=== PATIENT | female | born 1945 | race Caucasian/White ===

== ENCOUNTER 2018-10-21 05:37 | Emergency (ER) | payer MEDICARE, OTHER ==
[2018-10-21 05:55] VITALS: TEMP 96.5; O2SAT 99
--- NOTE | 2018-10-21 06:21 | RAD ---
CLINICAL HISTORY: C/O pain to right 5th digit COMPARISON: None. TECHNIQUE: XR HAND 3 OR MORE VIEWS 10/21/2018 5:55 AM CDT FINDINGS: There is a nondisplaced fracture involving the proximal aspect of the proximal fifth phalanx. There are [id number] degenerative changes of most of the IP joint. There is mild soft tissue swelling involving the fifth digit. IMPRESSION: Proximal fifth phalanx fracture. Electronically signed by: Delon Randall MD 10/21/2018 6:18 AM CDT
[2018-10-21 06:37] VITALS: BP 146/84
--- NOTE | 2018-10-21 06:43 | ED.PDOC ---
History of Present Illness - General Chief Complaint: Upper Extremity Injury Stated Complaint: Rt 5th finger pain Time Seen by Provider: 10/21/18 06:35 Source: patient Exam Limitations: no limitations - History of Present Illness Initial Comments: Pt was rolling over in bed when she fell out onto the floor. Pt was in a twin bed and is used to a full size . Pt denies other injury but for minor bruise to forehead Occurred: just prior to arrival Pain - Upper Extremity: moderate: Hand, right Method of Injury: fell Improving Factors: nothing Worsening Factors: movement Allergies/Adverse Reactions: Allergies Sulfa Antibiotics Allergy (Verified 10/21/18 05:55) Home Medications: Ambulatory Orders Insulin Glargine [Lantus Solostar] PRN 10/21/18 RX: Enalapril Maleate 10 mg PO DAILY 10/21/18 RX: Tramadol HCl 50 mg PO Q4HR PRN #20 tab 10/21/18 Review of Systems - Review of Systems Constitutional: States: no symptoms reported EENTM: Denies: eye pain, blurred vision, nose pain Respiratory: States: no symptoms reported Cardiology: States: no symptoms reported Gastrointestinal/Abdominal: States: no symptoms reported Genitourinary: States: no symptoms reported Musculoskeletal: States: joint pain, joint swelling Skin: States: no symptoms reported Neurological: Denies: headache, numbness, paresthesia, weakness Endocrine: States: no symptoms reported Hematologic/Lymphatic: States: no symptoms reported Past Medical History (General) - Patient Medical History Hx Hypertension: Yes Hx Diabetes: Yes - Vaccination History Hx Influenza Vaccination: No - Female History Patient is a Female of Child Bearing Age (10 -59 yrs old): No Family Medical History - Family History Father Family History: Unknown Physical Exam - Physical Exam General Appearance: Alert, Anxious, No apparent distress Eyes, Ears, Nose, Throat Exam: PERRL/EOMI Neck: full range of motion, normal inspection Shoulder Exam: normal inspection, non-tender Elbow/Forearm Exam: normal inspection, non-tender, no evidence of injury Wrist Exam: normal inspection, non-tender, no evidence of injury Hand Exam: ecchymosis, limited ROM - 2+ hematoma to 5th MP to prox 5th digit without deformity, swelling Neuro/Tendon: no evidence tendon injury Mental Status: alert, oriented x 3 Skin Exam: normal color, warm/dry Procedures - Splinting Right 5th Digit Hand Hand-Made Type: orthoglass Splint: ulnar - ulnar gutter to include 4-5 fingers Pre-Proc Neuro Vasc Exam: normal Post-Proc Neuro Vasc Exam: normal Departure - Departure Clinical Impression: fracture R 5th finger Disposition: Discharge to Home or Self Care Departure Forms: ED Discharge - Pt. Copy, Patient Portal Self Enrollment Instructions: DI for Arm Pain, DI for Finger Fracture Prescriptions: RX: Tramadol HCl 50 mg PO Q4HR PRN #20 tab PRN Reason: Moderate To Severe Pain Home Medications: Ambulatory Orders Insulin Glargine [Lantus Solostar] PRN 10/21/18 RX: Enalapril Maleate 10 mg PO DAILY 10/21/18 RX: Tramadol HCl 50 mg PO Q4HR PRN #20 tab 10/21/18
== END 2018-10-21 07:01 | disposition home or self-care (01) ==
LOC: ER 05:37
DX: S62.646A Nondisplaced fracture of proximal phalanx of right little finger, initial encounter for closed fracture (principal); I10 Essential (primary) hypertension; E11.9 Type 2 diabetes mellitus without complications; W06.XXXA Fall from bed, initial encounter; Z79.4 Long term (current) use of insulin; Z79.899 Other long term (current) drug therapy; Z88.2 Allergy status to sulfonamides; Y92.9 Unspecified place or not applicable